=== PATIENT | male | born 1950 | race African-American/Black ===

== ENCOUNTER 2019-04-03 20:23 | Emergency (ER) | payer OTHER | END 2019-04-04 00:28 | disposition home or self-care (01) | LOC: JER 04-04 00:28 | DX: S00.93XA Contusion of unspecified part of head, initial encounter (principal); W07.XXXA Fall from chair, initial encounter; Y93.89 Activity, other specified; Y92.238 Other place in hospital as the place of occurrence of the external cause; Y99.8 Other external cause status; F10.20 Alcohol dependence, uncomplicated; F14.20 Cocaine dependence, uncomplicated ==